=== PATIENT | male | born 1985 | race Caucasian/White ===

== ENCOUNTER 2017-05-22 19:31 | Emergency (ER) | payer SELFPAY ==
--- NOTE | 2017-05-23 19:09 | ER ---
ADMIT: 05/22/2017 RM/LOC: ER [facility] MR#: [id number] [facility] [address] [place], [place] [id number] ARGELIA TIMMONS [address] [place] [address] Emergency Room Report SEX: M AGE: 32 : 1985 DATE: 05/22/2017 ADDENDUM: CHIEF COMPLAINT: Dizziness. HISTORY OF PRESENT ILLNESS: This is a 32-year-old, who has had vague dizziness for the last 7 days. He said it has progressively gotten a little bit better, but his was worried, so they came in to the ER. CBC/BMP was done, it is normal. He is worried that he could have been anemic because he just became weak in the last 2 months. I reassured him that, that was okay, the electrolytes were okay. I did give him meclizine here in the emergency room, he said it may be mildly helped, but not really. I am sending him home with Valium to see if that helps. CLINICAL IMPRESSION: Labyrinthitis. DISPOSITION: Again, told to use Valium as needed and follow up if worsen. MATT Mcgee / Devan Flowers MD / modl JOB #: [id number] CC: Devan Flowers MD, Attending Physician Sundar Otto MD, Family Physician
== END 2017-05-22 20:40 | disposition home or self-care (01) ==
LOC: ER 19:31
DX: H83.02 Labyrinthitis, left ear (principal); J45.909 Unspecified asthma, uncomplicated; Z90.89 Acquired absence of other organs